=== PATIENT | female | born 1990 | race Caucasian/White ===

== ENCOUNTER 2017-01-06 11:40 | Emergency (ER) | payer BC ==
[2017-01-06 12:08] VITALS: BP 116/71
--- NOTE | 2017-01-06 12:18 | ED ---
Psychiatric Complaint - HPI Summary HPI Summary: 26F presents for medication refill. She states she has been taking wellbutrin 150 mg daily for years. She was seeing a psychiatrist for her depression which has been under control. She states she no longer feels depression but does not want to stop the medication until she sees a primary in this area. She moved a month ago from [facility] and does not have a primary yet. She has an appointment the end of the month. She denies any SI/HI. - History Of Current Complaint Chief Complaint: UCGeneralIllness Time Seen by Provider: 01/06/17 12:12 Hx Last Menstrual Period: 12/26/16 - Allergies/Home Medications Allergies/Adverse Reactions: Allergies Allergy/AdvReac Type Severity Reaction Status Date / Time No Known Allergies Allergy Verified 01/06/17 12:03 Home Medications: Home Medications buPROPion TAB* [Wellbutrin TAB*] 150 mg PO DAILY 01/06/17 [History Confirmed 04/24] PMH/Surg Hx/FS Hx/Imm Hx Endocrine/Hematology History: Denies: Hx Anticoagulant Therapy Cardiovascular History: Denies: Hx Hypertension Psychiatric History: Reports: Hx Depression Infectious Disease History: No Infectious Disease History: Denies: Hx Clostridium Difficile, Hx Hepatitis, Hx Human Immunodeficiency Virus (HIV), Hx of Known/Suspected MRSA, Hx Shingles, Hx Tuberculosis, Hx Known/ Suspected VRE, Hx Known/Suspected VRSA, History Other Infectious Disease, Traveled Outside the in Last 30 Days - Family History Known Family History: Positive: None - Social History Alcohol Use: None Substance Use Type: Reports: None Smoking Status (MU): Never Smoked Tobacco Review of Systems Negative: Fever Negative: Chest Pain Negative: Shortness Of Breath Negative: Anxious, Depressed All Other Systems Reviewed And Are Negative: Yes Physical Exam Triage Information Reviewed: Yes Vital Signs On Initial Exam: Initial Vitals Temp Pulse Resp BP Pulse Ox 98.3 F 64 16 116/71 99 01/06/17 12:04 01/06/17 12:04 01/06/17 12:04 01/06/17 12:04 01/06/17 12:04 Vital Signs Reviewed: Yes Appearance: Positive: Well-Appearing Skin: Positive: Warm, Dry Head/Face: Positive: Normal Head/Face Inspection Eyes: Positive: Normal, EOMI, EDUAR, Conjunctiva Clear ENT: Positive: Normal ENT inspection, Pharynx normal, TMs normal Respiratory/Lung Sounds: Positive: Clear to Auscultation, Breath Sounds Present Cardiovascular: Positive: Normal, RRR Abdomen Description: Positive: Nontender, Soft Bowel Sounds: Positive: Present Musculoskeletal: Positive: Normal Neurological: Positive: Normal Psychiatric: Positive: Normal Diagnostics - Vital Signs Vital Signs Temp Pulse Resp BP Pulse Ox 01/06/17 12:04 98.3 F 64 16 116/71 99 - Laboratory Lab Statement: Any lab studies that have been ordered have been reviewed, and results considered in the medical decision making process. Course/Dx - Course Course Of Treatment: 26F presents for medication refill. She states she has been taking wellbutrin 150 mg daily for years. She was seeing a psychiatrist for her depression which has been under control. She states she no longer feels depression but does not want to stop the medication until she sees a primary in this area. She moved a month ago from [facility] and does not have a primary yet. She has an appointment the end of the month. She denies any SI/ HI. She took last dose last night. normal PE. will give month script for wellbutrin. patient understands and agrees with plan. - Differential Dx/Clinical Impression Differential Diagnosis/HQI/PQRI: Positive: Anxiety, Depression, Other - medication refill Provider Diagnosis: Medication refill Discharge - Discharge Plan Condition: Good Disposition: HOME Prescriptions: buPROPion TAB* [Wellbutrin TAB*] 150 mg PO DAILY #60 tab Referrals: [facility] [place] [facility] [Outside] Additional Instructions: Take two tablets (75mg each) daily Establish care with primary Return to ED if develop any new or worsening symptoms
== END 2017-01-06 12:28 | disposition home or self-care (01) ==
LOC: UCEAST 11:40
DX: F41.9 Anxiety disorder, unspecified (principal); F32.9 Major depressive disorder, single episode, unspecified; Z76.0 Encounter for issue of repeat prescription
CPT/HCPCS: 99202; G0463

== ENCOUNTER 2022-01-29 07:24 | Inpatient (IN) ==
[2022-01-29 10:57] LABS: ABS Lymphocytes 1.1 10^3/ul (1.0-4.8); ABS Monocytes 0.4 10^3/ul (0-0.8); Eosinophil % 0.6 %; Hematocrit 41 % (35-47); Hemoglobin 13.6 g/dL (12.0-16.0); Lymphocyte % 16.6 %; Mean Corpuscular HGB Conc 34 g/dL (31-36); Mean Corpuscular Hemoglobin 30 pg (27-31); Mean Corpuscular Volume 90 fL (80-97); Mean Platelet Volume 9.6 fL (7.4-10.4); Platelet Count 193 10^3/uL (150-450); Red Cell Distribution Width 13 % (10-15); White Blood Count 6.5 10^3/uL (3.5-10.8)
[2022-01-29] MEDS ORDERED: Al Hydrox/Mg Hydrox/Simet LIQ 30 ML UDC PO PRN (11:06)
[2022-01-29 11:46] LABS: HCG Pregnancy 0.77 mIU/mL
[2022-01-29 11:55] LABS: TSH Ultra Thyroid Stim Horm 0.66 mcIU/mL (0.34-5.60)
[2022-01-29 11:56] LABS: ALT 10 U/L (7-52); AST 13 U/L (13-39); Acetaminophen < 15 mcg/mL; Albumin 4.5 g/dL (3.2-5.2); Albumin/Globulin Ratio 1.9 (1-3); Alcohol, S < 13 mg/dL (<13); Alkaline Phosphatase 67 U/L (35-149); Anion Gap 7 mmol/L (2-11); Blood Urea Nitrogen 12 mg/dL (6-24); CO2 Carbon Dioxide 27 mmol/L (22-32); Calcium 9.8 mg/dL (8.6-10.3); Chloride 105 mmol/L (101-111); Globulin 2.4 g/dL (2-4); Glucose 104 mg/dL (70-100); Potassium 4.1 mmol/L (3.5-5.0); Salicylate < 2.50 mg/dL (<30); Sodium 139 mmol/L (135-145); Total Protein 6.9 g/dL (6.4-8.9); eGFR CKD-EPI 81.1 (>60)
[2022-01-31 08:21] LABS: HDL Cholesterol 63.6 mg/dL
[2022-02-01 07:57] VITALS: BP 118/68
== END 2022-02-01 12:15 | disposition home or self-care (01) | DRG 753 ==
LOC: ED 07:24 → EDHOLD 11:13 → BSU 12:49
PROVIDERS: ADMIT Psychiatry & Neurology Psychiatry; ATTEND Psychiatry & Neurology Psychiatry